=== PATIENT | male | born 1965 | race African-American/Black ===

== ENCOUNTER 2018-01-01 12:15 | Emergency (ER) | payer MEDICAID ==
[~2018-01-01] VITALS: Ht 190.5 cm; Wt 92.0 kg
[2018-01-01 12:33] VITALS: BP 133/88
== END 2018-01-01 16:43 | disposition left against medical advice (07) ==
LOC: ER 12:15
DX: M54.5 Low back pain (principal)
CPT/HCPCS: 99281

== ENCOUNTER 2018-02-08 16:44 | Emergency (ER) | payer MEDICAID ==
[~2018-02-08] VITALS: Ht 188 cm; Wt 90.0 kg
[2018-02-08 21:38] LABS: BASOPHILS % 0.8 % (0.0-2.0); EOSINOPHILS % 3.1 % (0.0-5.0); HEMATOCRIT. 42.4 % (42.0-52.0); HEMOGLOBIN. 14.4 g/dL (14.0-18.0); LYMPHOCYTES % 39.3 % (20.0-50.0); MEAN CORPUSCULAR HEMOGLOBIN 30.2 pg (28.0-32.0); MEAN CORPUSCULAR VOLUME 88.9 fL (80.0-94.0); MEAN PLATELET VOLUME 9.4 fl (7.4-10.4); MONOCYTES % 10.2 % (2.0-8.0); NEUTROPHILS % 46.6 % (40.0-76.0); PLATELET 172 x1000/uL (130-400); RED BLOOD CELL COUNT 4.77 mill/uL (4.7-6.1); RED CELL DISTRIBUTION WIDTH 12.7 % (11.6-14.6)
[2018-02-08 21:41] LABS: CHLORIDE 107 mEq/L (98-107)
[2018-02-08 23:35] VITALS: BP 98/74
== END 2018-02-08 22:28 | disposition home or self-care (01) ==
LOC: ER 18:59
DX: R42 Dizziness and giddiness (principal)
CPT/HCPCS: 36415; 70450; 80053; 85025; 93005; 99285

== ENCOUNTER 2018-07-26 08:33 | Emergency (ER) | payer MEDICAID ==
[~2018-07-26] VITALS: Ht 185.4 cm; Wt 86.0 kg
[2018-07-26] MEDS ORDERED: SODIUM CHLORIDE 0.9% 1,000 ML IV ONE (09:07)
[2018-07-26] MEDS ORDERED: TRAMADOL 50MG TABLET PO ONE (09:15)
[2018-07-26 09:24] LABS: BASOPHILS % 1.1 % (0.0-2.0); EOSINOPHILS % 1.5 % (0.0-5.0); HEMATOCRIT. 44.8 % (42.0-52.0); HEMOGLOBIN. 15.3 g/dL (14.0-18.0); LYMPHOCYTES % 38.6 % (20.0-50.0); MEAN CORPUSCULAR HEMOGLOBIN 30.3 pg (28.0-32.0); MEAN CORPUSCULAR VOLUME 88.4 fL (80.0-94.0); MEAN PLATELET VOLUME 8.7 fl (7.4-10.4); MONOCYTES % 7.9 % (2.0-8.0); NEUTROPHILS % 50.9 % (40.0-76.0); PLATELET 154 x1000/uL (130-400); RED BLOOD CELL COUNT 5.07 mill/uL (4.7-6.1); RED CELL DISTRIBUTION WIDTH 13.2 % (11.6-14.6)
[2018-07-26 09:28] LABS: CHLORIDE 108 mEq/L (98-107)
[2018-07-26] MEDS ORDERED: LOSARTAN POTASSIUM 25 MG TABLET PO ONE (09:30)
[2018-07-26 09:34] LABS: PARTIAL THROMBOPLASTIN TIME 25.9 sec (23.4-31.0); PROTHROMBIN TIME 10.1 sec (9.1-11.1)
[2018-07-26 10:15] LABS: *AMPHETAMINES SCREEN URINE NEGATIVE (NEGATIVE); *BARBITURATES SCREEN URINE NEGATIVE (NEGATIVE); *BENZODIAZEPINES SCREEN URINE NEGATIVE (NEGATIVE); *COCAINE SCREEN URINE NEGATIVE (NEGATIVE); METHADONE URINE SCREEN NEGATIVE (NEGATIVE); OPIATES URINE SCREEN NEGATIVE (NEGATIVE)
[2018-07-26 10:16] LABS: CANNABINOID URINE SCREEN NEGATIVE (NEGATIVE); PHENCYCLIDINE URINE SCREEN NEGATIVE (NEGATIVE)
[2018-07-26 14:27] VITALS: BP 137/90
== END 2018-07-26 14:35 | disposition home or self-care (01) ==
LOC: ER 08:33
DX: R07.89 Other chest pain (principal); R42 Dizziness and giddiness; I10 Essential (primary) hypertension; Z88.6 Allergy status to analgesic agent; Z91.14 Patient's other noncompliance with medication regimen
CPT/HCPCS: 36415; 70450; 71045; 80053; 80305; 83880; 84484; 85025; 85610; 85730; 93005; 96360; 96361; 99284; J7030; Z7610

== ENCOUNTER 2018-08-03 19:53 | Emergency (ER) | payer MEDICAID ==
[~2018-08-03] VITALS: Ht 188 cm; Wt 87.0 kg
[2018-08-04] MEDS ORDERED: METHYLPREDNISOLONE SOD SUCC 125 MG/2 ML VIAL IV STA (00:20)
[2018-08-04] MEDS ORDERED: MORPHINE SULFATE 4 MG/ML CPJ (NOT FOR IM USE) IV STA (00:20)
[2018-08-04] MEDS ORDERED: ONDANSETRON HCL 4MG/2ML INJ IV STA (00:20)
[2018-08-04] MEDS ORDERED: SODIUM CHLORIDE 0.9% 1,000 ML IV ONE (00:20)
[2018-08-04] MEDS ORDERED: LEVOFLOXACIN 750MG PREMIX 150 ML IV ONE (00:30)
[2018-08-04] MEDS ORDERED: IPRATROPIUM/ALBUTEROL 0.5-3(2.5)MG/3ML NEB ONE (00:57)
[2018-08-04] MEDS ORDERED: IPRATROPIUM/ALBUTEROL 0.5-3(2.5)MG/3ML NEB HHN ONE (01:00)
[2018-08-04 01:06] LABS: BASOPHILS % 1.4 % (0.0-2.0); EOSINOPHILS % 1.6 % (0.0-5.0); HEMATOCRIT. 43.8 % (42.0-52.0); HEMOGLOBIN. 14.9 g/dL (14.0-18.0); LYMPHOCYTES % 41.2 % (20.0-50.0); MEAN CORPUSCULAR HEMOGLOBIN 30.5 pg (28.0-32.0); MEAN CORPUSCULAR VOLUME 89.5 fL (80.0-94.0); MEAN PLATELET VOLUME 8.9 fl (7.4-10.4); MONOCYTES % 8.9 % (2.0-8.0); NEUTROPHILS % 46.9 % (40.0-76.0); PLATELET 177 x1000/uL (130-400); RED CELL DISTRIBUTION WIDTH 13.4 % (11.6-14.6)
[2018-08-04 01:12] LABS: CHLORIDE 106 mEq/L (98-107)
[2018-08-04 01:19] LABS: D-DIMER < 0.19 mg/L FEU (<0.50); PROTHROMBIN TIME 10.1 sec (9.1-11.1)
[2018-08-04 02:35] VITALS: BP 148/88
== END 2018-08-04 02:38 | disposition home or self-care (01) ==
LOC: ER 19:53
DX: R05 Cough (principal); J40 Bronchitis, not specified as acute or chronic; R07.89 Other chest pain; I10 Essential (primary) hypertension; Z88.6 Allergy status to analgesic agent
CPT/HCPCS: 36415; 71045; 80053; 83880; 84484; 85025; 85379; 85610; 85730; 93005; 94640; 96365; 96375; 99284; J1956; J2270; J2405; J2930; J7030; J7620

== ENCOUNTER 2020-08-14 09:46 | Emergency (ER) | payer MEDICAID ==
[~2020-08-14] VITALS: Ht 188 cm; Wt 82.0 kg
[2020-08-14 11:45] VITALS: BP 157/94
[2020-08-14 11:47] LABS: CLARITY URINE CLEAR (CLEAR); COLOR URINE YELLOW (YELLOW); KETONES URINE 1+ (NEGATIVE); LEUKOCYTE ESTERASE URINE NEGATIVE (NEGATIVE); NITRITE URINE NEGATIVE (NEGATIVE); OCCULT BLOOD URINE NEGATIVE (NEGATIVE); PH URINE 5.5 (4.5-8.0); PROTEIN URINE NEGATIVE (NEGATIVE); SPECIFIC GRAVITY URINE 1.029 (1.005-1.030); UROBILINOGEN URINE 0.2 E.U./dL (0.2-1.0)
== END 2020-08-14 13:25 | disposition left against medical advice (07) ==
LOC: ER 09:46
DX: R10.9 Unspecified abdominal pain (principal); I10 Essential (primary) hypertension; Z88.6 Allergy status to analgesic agent
CPT/HCPCS: 81003; 99283